=== PATIENT | female | born 1990 | race Caucasian/White ===

== ENCOUNTER 2016-09-24 16:21 | Emergency (ER) | payer SELFPAY ==
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
[2016-09-24 16:53] LABS: AMORPHOUS SEDIMENT,URINE TRACE /HPF; APPEARANCE,URINE CLOUDY; BILIRUBIN,URINE NEGATIVE (NEGATIVE); GLUCOSE, URINE NEGATIVE (NEGATIVE); KETONES,URINE NEGATIVE (NEGATIVE); LEUKOCYTE ESTERASE,URINE NEGATIVE (NEGATIVE); NITRITE,URINE NEGATIVE (NEGATIVE); PROTEIN,URINE NEGATIVE (NEGATIVE); URINE SPECIFIC GRAVITY 1.017; UROBILINOGEN,URINE NEGATIVE mg/dL (<2.0)
[2016-09-24 16:59] LABS: URINE BARBITURATES SCREEN NEGATIVE; URINE METHADONE SCREEN NEGATIVE; URINE OPIATES LOW NEGATIVE; URINE PHENCYCLIDINE SCREEN NEGATIVE
[2016-09-24 17:06] LABS: ABSOLUTE LYMPHOCYTES (AUTO) 1.3 10^3/uL (0.5-4.7); ABSOLUTE MONOCYTES (AUTO) 0.4 10^3/uL (0.1-1.4); ABSOLUTE NEUT (AUTO) 5.7 10^3/uL (1.7-8.2); BASOPHILS % (AUTO) 0.6 % (0-2); EOSINOPHILS % (AUTO) 0.3 % (0-6); HEMATOCRIT 42.9 % (36.0-47.0); HGB HCT DIFFERENCE 2.1; LYMPHOCYTES % (AUTO) 17.2 % (13-45); MEAN CORPUSCULAR HEMOGLOBIN 31.2 pg (27.0-33.4); MEAN CORPUSCULAR HGB CONC 34.9 g/dL (32.0-36.0); MEAN CORPUSCULAR VOLUME 90 fl (80-97); RED BLOOD COUNT 4.79 10^6/uL (3.72-5.28); RED CELL DISTRIBUTION WIDTH 13.1 % (11.5-14.0); SEGMENTED NEUTROPHILS % (AUTO) 76.9 % (42-78); WHITE BLOOD COUNT 7.4 10^3/uL (4.0-10.5)
[2016-09-24 17:30] LABS: ALANINE AMINOTRANSFERASE 30 U/L (9-52); ALBUMIN 4.5 g/dL (3.5-5.0); ALKALINE PHOSPHATASE 45 U/L (38-126); ANION GAP 10 (5-19); ASPARTATE AMINO TRANSFERASE 28 U/L (14-36); BILIRUBIN,DIRECT 0.3 mg/dL (0.0-0.4); BILIRUBIN,TOTAL 0.9 mg/dL (0.2-1.3); BLOOD UREA NITROGEN 13 mg/dL (7-20); CALCIUM 9.6 mg/dL (8.4-10.2); CARBON DIOXIDE 24 mmol/L (22-30); CHLORIDE 107 mmol/L (98-107); CREATININE RESULT 0.68 mg/dL (0.52-1.25); GLUCOSE 98 mg/dL (75-110); POTASSIUM 4.1 mmol/L (3.6-5.0); SODIUM 140.9 mmol/L (137-145); TOTAL PROTEIN 7.3 g/dL (6.3-8.2)
[2016-09-24 17:31] LABS: ALCOHOL < 10 mg/dL (NONE DETECTED)
--- NOTE | 2016-09-24 19:07 | EKG REPORT ---
SEVERITY:- NORMAL ECG - SINUS RHYTHM BORDERLINE [place] 120 MS., ACCEL. AV CONDUCTION. : Confirmed by: Alfonso Caro MD 24-Sep-2016 19:06:26
[2016-09-25] MEDS ORDERED: BUSPIRONE HCL 10 MG TABLET PO SCH (10:15)
--- NOTE | 2016-09-25 10:56 | ER Document Report ---
Doctor's Note Notes: 09/25/16 10:55 Rounds: Chart reviewed and patient interviewed. Patient was being evaluated for suicidal thoughts. However, she does not express any such thoughts this morning. Sounds rather positive when she speaks about her 2-year-old daughter who is at home. Vital signs all been normal. Lab studies are negative except for being positive for marijuana. Patient has an appointment to be seen at [facility] on the eighth. Patient appears to be medically stable for transfer or discharge. Carlee Shelton MD
[2016-09-25] MEDS ORDERED: DIVALPROEX SODIUM 250 MG TAB.SR.24H PO SCH (11:00)
[2016-09-25 13:50] VITALS: BP 125/79
== END 2016-09-25 13:40 | disposition home or self-care (01) ==
LOC: ER 16:21
DX: F31.9 Bipolar disorder, unspecified (principal); R45.851 Suicidal ideations; Z63.6 Dependent relative needing care at home; F17.200 Nicotine dependence, unspecified, uncomplicated
CPT/HCPCS: 36415; 80053; 80307; 81001; 84703; 85025; 93005; 93010; 99284

== ENCOUNTER 2018-02-23 05:29 | Emergency (ER) | payer OTHER ==
--- NOTE | 2018-02-23 06:27 | ER Document Report ---
ED General - General Chief Complaint: Ear Pain Stated Complaint: EAR PAIN Time Seen by Provider: 02/23/18 06:09 Notes: Patient is a 27-year-old female that presents to the emergency department for chief complaint of ear pain. Patient is currently 6 weeks gravid, she states she started complaining of ear pain last night, to the point that it got severe, currently rates the pain as a 10 out of 10, in her right ear. She states she feels fluid and popping behind it as well. She is had congestion and runny nose over the past week, and then developed this last night. She denies noting any fevers, chills, night sweats, cough, sore throat or difficulty breathing. Denies any abdominal pain or vaginal bleeding. Past Medical History: Denies chronic medical conditions Past Surgical History: Social History: Denies tobacco, alcohol or drug use. Family History: Reviewed and noncontributory for presenting illness Allergies: Reviewed, see documented allergy list. REVIEW OF SYSTEMS: Other than noted above, the 12 point review of systems was reviewed with the patient and were negative, all pertinent findings are included in the HPI. PHYSICAL EXAMINATION: Vital signs reviewed, nursing noted reviewed. GENERAL: Patient does appear uncomfortable and in pain HEAD: Atraumatic, normocephalic. EYES: Eyes appear normal, sclera anicteric, conjunctiva are normal. ENT: Moist mucous membranes. Bilateral TMs are visualized, although patient did have moderate amount of cerumen, but was able to visualize the TM, on the right it did appear erythematous and bulging, the left TM was unremarkable. NECK: Normal range of motion, supple without lymphadenopathy LUNGS: Breath sounds clear to auscultation bilaterally and equal. No wheezes rales or rhonchi. HEART: Regular rate and rhythm without murmurs EXTREMITIES: Nontender, good range of motion, no pitting or edema. NEUROLOGICAL: No focal neurological deficits. Moves all extremities spontaneously Motor and sensory grossly intact on exam. PSYCH: Normal mood, normal affect. SKIN: Warm, Dry, normal turgor, no rashes or lesions noted on exposed skin TRAVEL OUTSIDE OF THE [place] IN LAST 30 DAYS: No - Related Data Allergies/Adverse Reactions: No Known Allergies Allergy (Verified 07/02/14 15:42) Past Medical History - Social History Smoking Status: Former Smoker Chew tobacco use (# tins/day): No Frequency of alcohol use: None Drug Abuse: None Family History: Reviewed & Not Pertinent Patient has suicidal ideation: No Patient has homicidal ideation: No Renal/ Medical History: Denies: Hx Peritoneal Dialysis Psychiatric Medical History: Reports: Hx Depression Past Surgical History: Reports: Hx Section - Immunizations Hx Diphtheria, Pertussis, Tetanus Vaccination: Yes Physical Exam - Vital signs Vitals: Temp Pulse Resp BP Pulse Ox 97.7 F 92 20 119/74 99 02/23/18 05:35 02/23/18 05:35 02/23/18 05:35 02/23/18 05:35 02/23/18 05:35 Course - Re-evaluation Re-evalutation: Patient seen and examined, vital signs reviewed, patient appear to be uncomfortable, did appear to have a right otitis media, will discharge her home on a prescription for amoxicillin, for 10 days, also she was given in the ED 5 drops of tetracaine into the right ear canal to help augment some of her pain, and advised Tylenol 1000 mg every 8 hours to help with her pain as well. Patient was agreeable to this plan of care, she is advised to follow-up with her primary care physician. - Vital Signs Vital signs: Temp Pulse Resp BP Pulse Ox 98.9 F 89 18 122/77 97 02/23/18 06:51 02/23/18 06:51 02/23/18 06:51 02/23/18 06:51 02/23/18 06:51 Discharge - Discharge Clinical Impression: Acute otitis media Qualifiers: Otitis media type: unspecified Qualified Code(s): H66.90 - Otitis media, unspecified, unspecified ear Condition: Stable Disposition: HOME, SELF-CARE Instructions: Otitis Media ([facility]) Additional Instructions: Please follow-up with your PCP. Prescriptions: RX: Acetaminophen [Tactinal] 1,000 mg PO Q8 PRN #90 tablet PRN Reason: ear pain RX: Amoxicillin Trihydrate [Amoxil 875 mg Tablet] 1 tab PO BID #20 tablet Referrals: [facility] [Provider Group] - Follow up in 3-5 days (or your primary care. )
[2018-02-23] MEDS ORDERED: TETRACAINE HCL 0.5% OPH SOLN 4 ML TOP ONE (06:39)
[2018-02-23] MEDS ORDERED: AMOXICILLIN TRIHYDRATE 500 MG CAPSULE PO ONE (06:41)
[2018-02-23 06:52] VITALS: BP 122/77
== END 2018-02-23 07:00 | disposition home or self-care (01) ==
LOC: ER 05:29
DX: H66.91 Otitis media, unspecified, right ear (principal)
CPT/HCPCS: 99283; J3490

== ENCOUNTER → 2018-06-08 | Outpatient (CLI) | payer OTHER, MEDICAID ==
--- NOTE | 2018-06-08 16:16 | RADIOLOGY REPORT (SQ) ---
EXAM DESCRIPTION: VENOUS UNILATERAL LOWER COMPLETED DATE/TIME: 06/08/2018 3:53 pm REASON FOR STUDY: LLE SWELLING I80.00 PHLEBITIS AND THROMBOPHLEBITIS OF SUPERFICIAL VESSELS OF UNSP LOW COMPARISON: None. TECHNIQUE: Dynamic and static cannon scale and color images acquired of the left leg venous system. Se lected spectral images acquired with additional compression and augmentation maneuvers. The contralat eral common femoral vein and saphenofemoral junction were also imaged. Images stored on PACS. LIMITATIONS: None. FINDINGS: COMMON FEMORAL: Normal phasicity, compression and augmentation. No visualized echogenic ma terial on cannon scale. No defects on color images. FEMORAL: Normal compression and augmentation. No visualized echogenic material on cannon scale. No defe cts on color images. POPLITEAL: Normal compression, augmentation. No visualized echogenic material on cannon scale. No defec ts on color images. CALF VESSELS: Normal compression, augmentation. No visualized echogenic material on cannon scale. No de fects on color images. GSV and SSV: Normal compression, augmentation. No visualized echogenic material on cannon scale. No def ects on color images. ANY DEEP VENOUS INSUFFICIENCY: Not evaluated. ANY EVIDENCE OF POPLITEAL CYST: No. OTHER: No other significant finding. CONTRALATERAL COMMON FEMORAL VEIN AND SAPHENOFEMORAL JUNCTION: Normal phasicity, compression and augmentation. No visualized echogenic material on cannon scale. No de fects on color images. IMPRESSION: NO EVIDENCE DVT OR SVT IN THE LEFT LEG. TECHNICAL DOCUMENTATION: JOB ID: [id number] [employer]- All Rights Reserved Reading location - IP/workstation name: [email or web address]
== END ==
LOC: SP 14:56
PROVIDERS: ATTEND Midwife
DX: I80.00 Phlebitis and thrombophlebitis of superficial vessels of unspecified lower extremity (principal)
CPT/HCPCS: 93971

== ENCOUNTER → 2018-07-19 | Outpatient (CLI) | payer MEDICAID, OTHER ==
--- NOTE | 2018-07-19 16:27 | RADIOLOGY REPORT (SQ) ---
EXAM DESCRIPTION: VENOUS UNILATERAL LOWER COMPLETED DATE/TIME: 07/19/2018 3:35 pm REASON FOR STUDY: LLE PAIN I83.812 VARICOSE VEINS OF LEFT LOWER EXTREMITY WITH PAIN COMPARISON: None. TECHNIQUE: Dynamic and static cannon scale and color images acquired of the left leg venous system. Se lected spectral images acquired with additional compression and augmentation maneuvers. The contralat eral common femoral vein and saphenofemoral junction were also imaged. Images stored on PACS. LIMITATIONS: None. FINDINGS: COMMON FEMORAL: Normal phasicity, compression and augmentation. No visualized echogenic ma terial on cannon scale. No defects on color images. FEMORAL: Normal compression and augmentation. No visualized echogenic material on cannon scale. No defe cts on color images. POPLITEAL: Normal compression, augmentation. No visualized echogenic material on cannon scale. No defec ts on color images. CALF VESSELS: Normal compression, augmentation. No visualized echogenic material on cannon scale. No de fects on color images. GSV and SSV: Normal compression, augmentation. No visualized echogenic material on cannon scale. No def ects on color images. ANY DEEP VENOUS INSUFFICIENCY: Not evaluated. ANY EVIDENCE OF POPLITEAL CYST: No. OTHER: No other significant finding. CONTRALATERAL COMMON FEMORAL VEIN AND SAPHENOFEMORAL JUNCTION: Normal phasicity, compression and augmentation. No visualized echogenic material on cannon scale. No de fects on color images. IMPRESSION: No evidence of DVT or SVT in the left leg. TECHNICAL DOCUMENTATION: JOB ID: [id number] [employer]- All Rights Reserved Reading location - IP/workstation name: [email or web address]
== END ==
LOC: SP 15:02
PROVIDERS: ATTEND Obstetrics & Gynecology
DX: I83.812 Varicose veins of left lower extremity with pain (principal)
CPT/HCPCS: 93971

== ENCOUNTER 2018-10-10 10:26 | Inpatient (IN) | payer MEDICAID ==
[2018-10-10 11:48] LABS: ABSOLUTE BASOPHILS # (AUTO) 0.1 10^3/uL (0.0-0.2); ABSOLUTE EOSINOPHILS # (AUTO) 0.1 10^3/uL (0.0-0.6); ABSOLUTE LYMPHOCYTES (AUTO) 1.5 10^3/uL (0.5-4.7); ABSOLUTE MONOCYTES (AUTO) 0.5 10^3/uL (0.1-1.4); ABSOLUTE NEUT (AUTO) 6.2 10^3/uL (1.7-8.2); BASOPHILS % (AUTO) 0.6 % (0-2); EOSINOPHILS % (AUTO) 1.4 % (0-6); HEMATOCRIT 35.7 % (36.0-47.0); HEMOGLOBIN 12.6 g/dL (12.0-15.5); LYMPHOCYTES % (AUTO) 18.2 % (13-45); MEAN CORPUSCULAR HEMOGLOBIN 32.3 pg (27.0-33.4); MEAN CORPUSCULAR HGB CONC 35.3 g/dL (32.0-36.0); MEAN CORPUSCULAR VOLUME 92 fl (80-97); MONOCYTES % (AUTO) 5.9 % (3-13); PLATELET COUNT 178 10^3/uL (150-450); RED CELL DISTRIBUTION WIDTH 13.3 % (11.5-14.0); SEGMENTED NEUTROPHILS % (AUTO) 73.9 % (42-78); TOTAL CELLS COUNTED % (AUTO) 100 %; WHITE BLOOD COUNT 8.4 10^3/uL (4.0-10.5)
[2018-10-10 11:59] LABS: APPEARANCE,URINE SLIGHTLY-CLOUDY; BILIRUBIN,URINE NEGATIVE (NEGATIVE); COLOR,URINE YELLOW; GLUCOSE, URINE NEGATIVE (NEGATIVE); KETONES,URINE NEGATIVE (NEGATIVE); LEUKOCYTE ESTERASE,URINE MODERATE (NEGATIVE); NITRITE,URINE NEGATIVE (NEGATIVE); PROTEIN,URINE NEGATIVE (NEGATIVE); URINE SPECIFIC GRAVITY 1.009; UROBILINOGEN,URINE NEGATIVE mg/dL (<2.0)
[2018-10-10 12:15] LABS: URINE AMPHETAMINES SCREEN NEGATIVE; URINE BARBITURATES SCREEN NEGATIVE; URINE BENZODIAZEPINES SCREEN NEGATIVE; URINE COCAINE SCREEN NEGATIVE; URINE MARIJUANA (THC) SCREEN NEGATIVE; URINE METHADONE SCREEN NEGATIVE; URINE PHENCYCLIDINE SCREEN NEGATIVE
[2018-10-10 13:22] LABS: CHLAM PCR NOT DETECTED (NOT DETECT)
[2018-10-11] MEDS ORDERED: RINGERS SOLUTION,LACTATED 1,000 ML IV PRN ×2 (05:00→12:31)
[2018-10-11] MEDS ORDERED: CEFAZOLIN SODIUM 2 GM in DEXTROSE 5%-WATER 100 ML IV PRN (05:00)
[2018-10-11] MEDS: LACTATED RINGERS 1000 ML IV PRN ×2 (06:24→18:08)
[2018-10-11] MEDS ORDERED: OXYTOCIN 10 UNIT/ML VIAL ONE (07:28)
[2018-10-11] MEDS ORDERED: KETOROLAC TROMETHAMINE INJ/PF 30 MG/1 ML SDV ONE (07:28)
[2018-10-11] MEDS ORDERED: MIDAZOLAM 2 MG/2 ML INJ ONE (07:28)
[2018-10-11] MEDS ORDERED: FENTANYL CITRATE INJ/PF 100 MCG/2 ML AMPUL ONE (07:28)
[2018-10-11] MEDS ORDERED: EPHEDRINE SULFATE INJ 50 MG/1 ML AMPULE ONE (07:28)
[2018-10-11] MEDS ORDERED: OXYTOCIN/NORMAL SALINE 20 UNIT/1,000 ML RTUINJ ONE (07:28)
[2018-10-11] MEDS ORDERED: ACETAMINOPHEN 1,000 MG/100 ML RTUPB IV ONE (07:29)
[2018-10-11] MEDS ORDERED: ONDANSETRON HCL INJ/PF 4 MG/2 ML SDV ONE (07:29)
[2018-10-11] MEDS ORDERED: PHENYLEPHRINE HCL INJ/PF 10 MG/1 ML SDV ONE (07:31)
[2018-10-11] MEDS ORDERED: MEPERIDINE HCL/PF INJ 25 MG/1 ML DISP.SYRIN IV PRN (09:12)
[2018-10-11] MEDS ORDERED: OXYCODONE-ACETAMINOPHEN 5-325 MG TABLET PO PRN ×3 (09:12→12:31)
[2018-10-11] MEDS ORDERED: FENTANYL CITRATE INJ/PF 100 MCG/2 ML AMPUL IV PRN ×3 (09:12)
[2018-10-11] MEDS ORDERED: DIPHENHYDRAMINE HCL 50 MG/ML VIAL IV PRN (09:12)
[2018-10-11] MEDS ORDERED: PROMETHAZINE HCL INJ 25 MG/1 ML VIAL IV PRN ×3 (09:12→12:31)
[2018-10-11] MEDS ORDERED: ONDANSETRON HCL INJ/PF 4 MG/2 ML SDV IV PRN (09:12)
[2018-10-11] MEDS ORDERED: NALBUPHINE HCL INJ 10 MG/1 ML AMPULE ONE (09:53)
[2018-10-11] MEDS ORDERED: DIPH/PERTUSS(ACELL)/TETANUS VAC/PF 0.5 ML SYR (>=10YO) IM PRN (12:31)
[2018-10-11] MEDS ORDERED: ACETAMINOPHEN 1,000 MG/100 ML RTUPB IV PRN (12:31)
[2018-10-11] MEDS ORDERED: SIMETHICONE 80 MG TAB.CHEW PO PRN (12:31)
[2018-10-11] MEDS ORDERED: MEASLES,MUMPS&RUBELLA VACC/PF 0.5 ML VIAL SUBCUT PRN (12:31)
[2018-10-11] MEDS ORDERED: OXYTOCIN/NORMAL SALINE 20 UNIT/1,000 ML RTUINJ IV PRN (12:31)
[2018-10-11] MEDS ORDERED: HYDROMORPHONE HCL INJ/PF 2 MG/ML AMPULE IV PRN (12:31)
[2018-10-11] MEDS ORDERED: ACETAMINOPHEN 325 MG TABLET PO PRN (12:31)
[2018-10-11] MEDS: KETOROLAC TROMETHAMINE INJ/PF 30 MG/1 ML SDV IV SCH ×2 (15:47→22:10)
[2018-10-11] MEDS: DOCUSATE SODIUM 100 MG CAPSULE PO SCH (18:15)
--- NOTE | 2018-10-11 19:16 | Brief Operative Note ---
BRIEF OPERATIVE REPORT DATE OF SURGERY: 10/11/18 TIME OF SURGERY: 09:00 PREOPERATIVE DIAGNOSIS: , 39+1ega, History of section, Declines TOLAC, Circuvallate placenta POSTOPERATIVE DIAGNOSIS: HUANG - delivered SURGEON: TOBY RUIZ FINDINGS: Normal appearing bilateral tubes/ovaries, Arcuate appearing uterus. VMI delivered at 0906. Weight 9#2oz, Apgars 9/10. IVF 2000ml, UOP 100ml COMPLICATIONS: None ESTIMATED BLOOD LOSS: 560ml TISSUE REMOVED OR ALTERED: placenta and cord not sent to pathology TECHNICAL PROCEDURE: Repeat Section
--- NOTE | 2018-10-11 19:17 | PDOC DELIVERY SUMMARY ---
Delivery Summary - Maternal Hx : II Hx Para: I Hx # Term Pregnancies: 1 Hx # Pregnancies: 0 Hx Total # of Abortions (Sponateous & Elective): 0 Number of Living Children: 1 YAS: 10/17/18 Gestational Age: 39+2 Risk Factors: Previous Ruptured Membranes: AROM Time of Rupture: 09:05 Fluids: Clear - Delivery Labor: Not In Labor Presentation: Vertex Uterine Contraction Monitoring: External Support Person Present: Yes Location: OR : Scheduled, Repeat Placenta: Within Normal Limits Placenta Description: circumvallate but otherwise normal appearing Number of Vessels (Cord): 3 Nuchal Cord: No Delivery of Placenta Date: 10/11/18 Delivery of Placenta Time: 09:06 Estimated Blood Loss: 560 Delivery Quantitative Blood Loss (QBL): 560 Delivery QBL Comment: 560ml - Medications Type of Anesthesia:: Spinal - Assess and Care Baby 1 Male Delivery of Date: 10/11/18 Delivery of Infant Time: 09:06 at 1 minute: 9 at 5 minutes: 10 Preprinted Number On Band: [id number] Infant Skin to Skin: No Mode of Transport: [facility] [place] Delivery Weight: 4,140 Infant Delivery Length: 21 in - Delivery Personnel Senior Compliance Analyst: BRIAN LIZARRAGA RN: AYAN CASE MD: TOBY RUIZ
--- NOTE | 2018-10-11 19:33 | Operative Report ---
Operative Report DATE OF SURGERY: 10/11/18 PREOPERATIVE DIAGNOSIS: , 39+1ega, History of section, Declines TOLAC, Circumvallate placenta POSTOPERATIVE DIAGNOSIS: HUANG - delivered, arcuate uterus OPERATION: Repeat section, Scar revision SURGEON: TOBY RUIZ ANESTHESIA: Spinal TISSUE REMOVED OR ALTERED: placenta and cord not sent to pathology COMPLICATIONS: None ESTIMATED BLOOD LOSS: 560ml INTRAOPERATIVE FINDINGS: normal bilateral tubes/ovaries, arcuate appearing uterus. VMI delivered at 0906, weight 9#2oz, Apgars 9/10. PROCEDURE: Anesthesia provider: [Ratna FONTAINE, Abdifatah Arrieta CRNA] Urine output: [100ml] IV fluids: [2000ml] Indications: [28yo with history of Primary section for cephalopelvic disproportion with 8#11oz baby. She was counseled regarding TOLAC and declines TOLAC and desires repeat Section. History of depression and planner internship placed. She was counseled regarding the risks, benefits, alternatives and desires repeat section.] Procedure: The patient was taken to the operating room where spinal anesthesia was obtained and found to be adequate. She was then prepped and draped in the normal sterile fashion and placed in the dorsal supine position with a leftward tilt. The prior Pfannenstiel skin incision was excised and then incision was then carried through to the underlying layers of the fascia with the scalpel. The fascia was incised in the midline and the incision extended laterally with the Lawson scissors. The superior aspect of the fascial incision was then grasped with Erin clamps elevated and the underlying rectus muscles dissected off [bluntly]. Attention was then turned to the inferior aspect of the fascial incision which in a similar fashion was grasped, tented up with Erin clamps, and the rectus muscles dissected off [bluntly]. The rectus muscles were then in the midline and the peritoneum at the amount identified and entered [bluntly]. The peritoneal incision was then extended superiorly and inferiorly with good visualization of the bladder. The bladder blade was inserted and the vesicouterine peritoneum identified grasped with Argentine pickups and entered sharply with the Metzenbaum scissors. This incision was then extended laterally with the Metzenbaum scissors and a bladder flap created digitally. The bladder blade was then reinserted and the lower uterine segment incised in a transverse fashion with the scalpel. The uterine incision was then extended bluntly. The bladder blade was removed and the 's head was delivered from cephalic presentation atraumatically. The nose and mouth were suctioned and the cord doubly clamped and cut. And the was handed off to waiting pediatricians. The placenta was then delivered spontaneously and the uterus exteriorized and cleared of all clots and debris. The uterine incision was then repaired with 1- 0 Vicryl in a running locked fashion. A second layer of the same suture was used to obtain hemostasis via imbrication of the initial layer. The bladder flap was then repaired with 3-0 chromic in a running fashion. The uterus was returned to the patient's abdomen and Interceed was placed overlying the uterine incision to prevent adhesions. The gutters were cleared of all clots and debris. All operative sites were noted to be hemostatic. The fascia was reapproximated with 0 Vicryl in a running fashion from each lateral edge to the midline. The skin was closed with 3-0 Monocryl in a running subcuticular fashion with overlying Dermabond for additional dressing as well as wound closure. The patient tolerated the procedure well. Sponge lap needle and instrument counts are correct times 2. 2 g of Ancef were given prior to skin incision. The patient was taken to the recovery area awake and in stable condition.
[2018-10-11] MEDS: OXYCODONE-ACETAMINOPHEN 5-325 MG TABLET PO PRN (20:03)
[2018-10-12] MEDS: OXYCODONE-ACETAMINOPHEN 5-325 MG TABLET PO PRN ×4 (01:50→20:35)
[2018-10-12] MEDS: IBUPROFEN 800 MG TABLET PO SCH ×3 (05:26→19:51)
[2018-10-12 07:09] LABS: HEMATOCRIT 27.1 % (36.0-47.0); MEAN CORPUSCULAR HEMOGLOBIN 32.1 pg (27.0-33.4); MEAN CORPUSCULAR VOLUME 92 fl (80-97); PLATELET COUNT 137 10^3/uL (150-450); RED BLOOD COUNT 2.95 10^6/uL (3.72-5.28); RED CELL DISTRIBUTION WIDTH 13.3 % (11.5-14.0); WHITE BLOOD COUNT 8.5 10^3/uL (4.0-10.5)
[2018-10-12 07:16] LABS: HEMOGLOBIN 9.5 g/dL (12.0-15.5)
[2018-10-12] MEDS: DOCUSATE SODIUM 100 MG CAPSULE PO SCH ×2 (09:46→19:52)
[2018-10-12] MEDS: PRENATAL VITAMIN W DHA CAPSULE PO SCH (09:46)
--- NOTE | 2018-10-12 10:33 | PDOC PROGRESS REPORT ---
Subjective-OB Progress Note for:: 10/12/18 - POD #1, s/p Rpt , doing well , no complaints, AB+, Rubella Non Immune, Physical Exam (OB) Vital Signs: Temp Pulse Resp BP Pulse Ox 97.3 F 76 16 126/63 H 98 10/12/18 07:34 10/12/18 07:34 10/12/18 07:34 10/12/18 07:34 10/12/18 07:34 Intake & Output 10/11/18 10/12/18 10/13/18 06:59 06:59 06:59 Intake Total 1100 Output Total 4800 Balance -3700 Weight 73.482 kg - General General Appearance: Appears well, Alert In distress: None - PIH/Pre-Eclampsia DTR's: 2 + Clonus: Negative Headache: Absent Epigastric Pain: No Visual Changes: No - Dressing Removed: No Incision: Well Approximated Closure Type: Steri-Strips - Lochia Lochia Amount: Scant < 10 ml Lochia Color: Rubra/Red - Abdomen Description: Soft Hernia Present: No Fundal Description: Firm Fundal Height: u/u - u/2 - Respiratory Respiratory Status: No respiratory distress Breath sounds: Clear - Cardiovascular Rhythm: Regular Heart Sounds: Normal auscultation - Abdominal Inspection: Normal Distension: No distension Tenderness: Nontender Abdominal Notes: +bowel sounds - Genitourinary Genitourinary Note: voiding - Extremities Upper extremity: Normal inspection Lower extremities: Normal inspection - Neurological Cognition: Normal Orientation: AAOx4 - Psychological Associated symptoms: Normal affect, Normal mood - Skin Skin Temperature: Warm Skin Moisture: Dry Objective-Diagnostic Laboratory: 10/12/18 06:44 10/12/18 06:44 WBC 8.5 RBC 2.95 L Hgb 9.5 L D Hct 27.1 L MCV 92 MCH 32.1 MCHC 35.0 RDW 13.3 Plt Count 137 L Assessment and Plan(PN) - Assessment and Plan (1) Anemia, Is this a current diagnosis for this admission?: Yes (2) History of delivery Is this a current diagnosis for this admission?: Yes (3) S/P repeat low transverse Is this a current diagnosis for this admission?: Yes (4) Depressed bipolar disorder Is this a current diagnosis for this admission?: Yes (5) History of suicide attempt Is this a current diagnosis for this admission?: No - Time Spent with Patient Time with patient: Less than 15 minutes Medications reviewed and adjusted accordingly: Yes - Disposition Anticipated Discharge: Home Within: within 48 hours
[2018-10-12] MEDS: FERROUS SULFATE 325 MG TABLET PO SCH (14:22)
[2018-10-13] MEDS: IBUPROFEN 800 MG TABLET PO SCH ×3 (04:39→12:49)
[2018-10-13] MEDS: OXYCODONE-ACETAMINOPHEN 5-325 MG TABLET PO PRN ×2 (07:17→12:47)
[2018-10-13 08:30] VITALS: BP 121/70
[2018-10-13] MEDS: DOCUSATE SODIUM 100 MG CAPSULE PO SCH (10:53)
[2018-10-13] MEDS: FERROUS SULFATE 325 MG TABLET PO SCH (10:53)
[2018-10-13] MEDS: PRENATAL VITAMIN W DHA CAPSULE PO SCH (10:53)
--- NOTE | 2018-10-13 12:23 | PDOC DISCHARGE SUMMARY ---
Final Diagnosis Discharge Date: 10/13/18 - Final Diagnosis (1) Anemia, Is this a current diagnosis for this admission?: Yes (2) History of delivery Is this a current diagnosis for this admission?: Yes (3) S/P repeat low transverse Is this a current diagnosis for this admission?: Yes (4) Depressed bipolar disorder Is this a current diagnosis for this admission?: Yes (5) History of suicide attempt Is this a current diagnosis for this admission?: Yes Discharge Data - Discharge Medication Home Medications: Pnv with Ca,No.72/Iron/FA [ Plus Tablet] 1 tab PO DAILY 07/02/14 Reason(s) for Admission: Ceasarean Section-Repeat Procedures: None Intrapartum Procedure(s): : Low Cervical, Transverse - Diagnosis Test Laboratory: Temp Pulse Resp BP Pulse Ox 97.9 F 95 18 121/70 99 10/13/18 08:00 10/13/18 08:00 10/13/18 08:00 10/13/18 08:00 10/13/18 08:00 10/10/18 10/10/18 10/12/18 09:53 10:43 06:44 RBC 3.90 2.95 L Hgb 12.6 9.5 L D Hct 35.7 L 27.1 L Urine Opiates Screen NEGATIVE - Discharge information/Instructions Discharge Activity: Balance Activity w/Rest, No Lifting Over 10 Pounds, No Lifting/Push/Pulling, Pelvic Rest Discharge Diet: Regular Disposition: HOME, SELF-CARE Follow [facility] in: 5, Days
== END 2018-10-13 17:50 | disposition home or self-care (01) | DRG 788 ==
LOC: 2S 10-11 05:38
PROVIDERS: ADMIT Student in an Organized Health Care Education/Training Program; ATTEND Student in an Organized Health Care Education/Training Program
PROC: 10D00Z1 Extraction of Products of Conception, Low, Open Approach (ICD-10-PCS; principal; 2018-10-11 07:30)
PROC: 3E0234Z Introduction of Serum, Toxoid and Vaccine into Muscle, Percutaneous Approach (ICD-10-PCS; 2018-10-13)
DX: O34.211 Maternal care for low transverse scar from previous cesarean delivery (principal); N85.8 Other specified noninflammatory disorders of uterus; O34.03 Maternal care for unspecified congenital malformation of uterus, third trimester; Q51.810 Arcuate uterus; O43.113 Circumvallate placenta, third trimester; Z3A.39 39 weeks gestation of pregnancy; Z37.0 Single live birth; Z23 Encounter for immunization
CPT/HCPCS: 1961; 36415; 59025; 80307; 81001; 85025; 85027; 86850; 86900; 86901; 87491; 87591; 90707; J0131; J0690; J1170; J1885; J2250; J2300; J2370; J2405; J2590; J3010; J3490; J7060; J7120

== ENCOUNTER 2019-07-03 13:02 | Emergency (ER) | payer MEDICAID ==
[2019-07-03] MEDS ORDERED: NORMAL SALINE 1000 ML 1,000 ML IV ONE (13:21)
[2019-07-03] MEDS ORDERED: ONDANSETRON HCL INJ/PF 4 MG/2 ML SDV IV ONE ×2 (13:21→14:17)
[2019-07-03 13:41] LABS: ABSOLUTE BASOPHILS # (AUTO) 0.1 10^3/uL (0.0-0.2); ABSOLUTE LYMPHOCYTES (AUTO) 1.3 10^3/uL (0.5-4.7); ABSOLUTE MONOCYTES (AUTO) 0.4 10^3/uL (0.1-1.4); ABSOLUTE NEUT (AUTO) 9.4 10^3/uL (1.7-8.2); BASOPHILS % (AUTO) 0.8 % (0-2); EOSINOPHILS % (AUTO) 0.4 % (0-6); HEMATOCRIT 45.4 % (36.0-47.0); HEMOGLOBIN 16.1 g/dL (12.0-15.5); LYMPHOCYTES % (AUTO) 11.9 % (13-45); MEAN CORPUSCULAR HEMOGLOBIN 31.8 pg (27.0-33.4); MEAN CORPUSCULAR HGB CONC 35.5 g/dL (32.0-36.0); MEAN CORPUSCULAR VOLUME 90 fl (80-97); MONOCYTES % (AUTO) 3.3 % (3-13); PLATELET COUNT 260 10^3/uL (150-450); RED BLOOD COUNT 5.07 10^6/uL (3.72-5.28); RED CELL DISTRIBUTION WIDTH 13.5 % (11.5-14.0); SEGMENTED NEUTROPHILS % (AUTO) 83.6 % (42-78); TOTAL CELLS COUNTED % (AUTO) 100 %; WHITE BLOOD COUNT 11.3 10^3/uL (4.0-10.5)
--- NOTE | 2019-07-03 13:55 | ER Document Report ---
ED GI/ - General TRAVEL OUTSIDE OF THE [place] IN LAST 30 DAYS: No <VALERIA LAO - Last Filed: 07/03/19 16:40> <[email or web address] - Last Filed: 07/03/19 17:10> - General Chief Complaint: Vomiting Stated Complaint: COUGH Time Seen by Provider: 07/03/19 13:08 Primary Care Provider: CHENG UMJICA MD [Primary Care Provider] - Follow up as needed Notes: CHIEF COMPLAINT: Vomiting for 3 to 4 days HPI: 29-year-old female presenting for vomiting for 3 to 4 days. Patient states that she normally does have moderate pelvic discomfort and some nausea vomiting around the time of her menses each month but states that she is been having significant nausea vomiting over the last 3 to 4 days. Patient denies abdominal or pelvic pain states she has some soreness in the abdomen which she believes is likely from vomiting. Denies chest pain shortness of breath cough or back pain. ROS: See HPI - all other systems were reviewed and are otherwise negative Constitutional: no fever Eyes: no drainage, no blurred vision ENT: no runny nose, no sore throat Cardiovascular: no chest pain Resp: no SOB, no cough GI: + vomiting, no diarrhea, positive abdominal soreness : no dysuria Integumentary: no rash Allergy: no hives Musculoskeletal: no extremity pain or swelling Neurological: no numbness/tingling, no weakness MEDICATIONS: I agree with the patient medications as charted by the RN. ALLERGIES: I agree with the allergies as charted by the RN. PAST MEDICAL HISTORY/PAST SURGICAL HISTORY: Reviewed and agree as charted by RN. SOCIAL HISTORY: Reviewed and agree as charted by RN. FAMILY HISTORY: No significant familial comorbid conditions directly related to patient complaint EXAM: Reviewed vital signs as charted by RN. CONSTITUTIONAL: Alert and oriented and responds appropriately to questions. Well-appearing; well-nourished HEAD: Normocephalic; atraumatic EYES: PERRL; Conjunctivae clear, sclerae non-icteric ENT: normal nose; no rhinorrhea; moist mucous membranes; pharynx without lesions noted, no uvula edema or deviation, no tonsillar hypertrophy, phonation normal NECK: Supple without meningismus; non-tender; no cervical lymphadenopathy, no masses CARD: RRR; no murmurs, no clicks, no rubs, no gallops; symmetric distal pulses RESP: Normal chest excursion without splinting or tachypnea; breath sounds clear and equal bilaterally; no wheezes, no rhonchi, no rales, pulse oximetry 100% on room air not hypoxic ABD/GI: Normal bowel sounds; non-distended; soft, non-tender, no rebound, no guarding; no palpable organomegaly or masses. BACK: The back appears normal and is non-tender to palpation, there is no CVA tenderness EXT: Normal ROM in all joints; non-tender to palpation; no cyanosis, no effusions, no edema SKIN: Normal color for age and race; warm; dry; good turgor; no acute lesions noted NEURO: Moves all extremities equally; Motor and sensory function intact PSYCH: The patient's mood and manner are appropriate. Grooming and personal hygiene are appropriate. MDM: 29-year-old female presenting for cyclic type vomiting, dry heaving and retching in the room. No focal abdominal pain on exam. I suspect she likely has cyclic vomiting. Will obtain screening labs hydrate patient given nausea medication and will reassess. No indication for imaging at this time (VALERIA LAO) - Related Data Allergies/Adverse Reactions: No Known Allergies Allergy (Verified 07/03/19 13:30) Past Medical History - Social History Smoking Status: Current Every Day Smoker Drug Abuse: Marijuana Family History: Reviewed & Not Pertinent Patient has homicidal ideation: No - Past Medical History Cardiac Medical History: Denies: Hx Pulmonary Embolism, Hx Heart Murmur Pulmonary Medical History: Denies: Hx Asthma, Hx Sleep Apnea, Hx Tuberculosis Neurological Medical History: Denies: Hx Cerebrovascular Accident, Hx Seizures Endocrine Medical History: Denies: Hx Hyperthyroidism, Hx Hypothyroidism Renal/ Medical History: Denies: Hx Kidney Stones, Hx Ovarian Cysts, Hx Peritoneal Dialysis, Hx Pelvic Inflammatory Disease Malignancy Medical History: Denies: Hx Breast Cancer, Hx Cervical Cancer, Hx Ovarian Cancer GI Medical History: Reports: Hx Gastroesophageal Reflux Disease. Denies: Hx Hiatal Hernia, Hx Ulcer Musculoskeletal Medical History: Denies Hx Fibromyalgia Psychiatric Medical History: Reports: Hx Bipolar Disorder, Hx Depression Denies: Hx Post Traumatic Stress Disorder, Hx Schizophrenia Traumatic Medical History: Denies: Hx Fractures Infectious Medical History: Denies: Hx HIV Past Surgical History: Reports: Hx Section - Immunizations Hx Diphtheria, Pertussis, Tetanus Vaccination: Yes <VALERIA LAO - Last Filed: 07/03/19 16:40> Physical Exam - Vital signs Vitals: Temp Pulse Resp BP Pulse Ox 98.4 F 97 20 141/98 H 100 07/03/19 13:30 07/03/19 13:30 07/03/19 13:30 07/03/19 13:30 07/03/19 13:30 Course - Laboratory Result Diagrams: 07/03/19 13:30 07/03/19 13:30 <VALERIA LAO - Last Filed: 07/03/19 16:40> - Laboratory Result Diagrams: 07/03/19 13:30 07/03/19 13:30 <MAMI FERREIRA - Last Filed: 07/03/19 17:10> - Re-evaluation Re-evalutation: 07/03/19 14:17 Patient states that she feels much better, still with very slight nausea no abdominal pain on reexam. Awaiting urinalysis 07/03/19 15:58 Patient had been feeling better nurses attempted to give ice chips and patient began retching again. She is positive for THC. Likely cyclic vomiting syndrome. Will give Haldol, capsaicin cream and reassess 07/03/19 16:53 Report to Gail Ferreira NP. will follow oral challenge for discharge (VALERIA LAO) 07/03/19 17:10 Tolerating fluids. She has stated she is feeling much better and would like to go home now. Discharge has been typed with a prescription for Reglan. Patient will be discharged home. (MAMI FERREIRA) - Vital Signs Vital signs: Temp Pulse Resp BP Pulse Ox 99.4 F 97 20 141/98 H 100 07/03/19 13:30 07/03/19 13:30 07/03/19 13:30 07/03/19 13:30 07/03/19 13:30 - Laboratory Laboratory results interpreted by me: 07/03/19 07/03/19 07/03/19 13:30 13:30 14:45 WBC 11.3 H Hgb 16.1 H Lymph % (Auto) 11.9 L Absolute Neuts (auto) 9.4 H Seg Neutrophils % 83.6 H Chloride 109 H Carbon Dioxide 20 L Glucose 139 H Urine Glucose (UA) 50 H Urine Ketones 25 H Urine Blood LARGE H Discharge <VALERIA LAO - Last Filed: 07/03/19 16:40> <MAMI FERREIRA - Last Filed: 07/03/19 17:10> - Discharge Clinical Impression: Cyclic vomiting syndrome, Marijuana abuse Condition: Stable Disposition: HOME, SELF-CARE Additional Instructions: Stop using marijuana as this is likely causing some of the cyclic vomiting you are doing. Take the Reglan for continued nausea vomiting. Follow-up with gastroenterology for further evaluation and treatment call for appointment Prescriptions: Metoclopramide HCl [Reglan 10 mg Tablet] 10 mg PO QID PRN #40 tablet PRN Reason: Referrals: CHENG MUJICA MD [Primary Care Provider] - Follow up as needed
[2019-07-03 14:09] LABS: ALBUMIN 4.9 g/dL (3.5-5.0); ALKALINE PHOSPHATASE 64 U/L (38-126); ANION GAP 10 (5-19); ASPARTATE AMINO TRANSFERASE 30 U/L (14-36); BILIRUBIN,TOTAL 0.8 mg/dL (0.2-1.3); BLOOD UREA NITROGEN 15 mg/dL (7-20); CALCIUM 10.2 mg/dL (8.4-10.2); CARBON DIOXIDE 20 mmol/L (22-30); CHLORIDE 109 mmol/L (98-107); GLUCOSE 139 mg/dL (75-110); POTASSIUM 3.8 mmol/L (3.6-5.0)
[2019-07-03 15:30] LABS: ADD MANUAL MICROSCOPIC YES; APPEARANCE,URINE CLEAR; BILIRUBIN,URINE NEGATIVE (NEGATIVE); COLOR,URINE LIGHT YELLOW; GLUCOSE, URINE 50 mg/dL (NEGATIVE); KETONES,URINE 25 mg/dL (NEGATIVE); LEUKOCYTE ESTERASE,URINE NEGATIVE (NEGATIVE); NITRITE,URINE NEGATIVE (NEGATIVE); PROTEIN,URINE NEGATIVE (NEGATIVE); URINE SPECIFIC GRAVITY 1.018; UROBILINOGEN,URINE NEGATIVE mg/dL (<2.0)
[2019-07-03 15:31] LABS: RBC,URINE 0-1 /HPF; WBC,URINE 0-1 /HPF
[2019-07-03 15:36] LABS: URINE AMPHETAMINES SCREEN NEGATIVE; URINE BARBITURATES SCREEN NEGATIVE; URINE BENZODIAZEPINES SCREEN NEGATIVE; URINE COCAINE SCREEN NEGATIVE; URINE METHADONE SCREEN NEGATIVE; URINE PHENCYCLIDINE SCREEN NEGATIVE
[2019-07-03 15:37] LABS: URINE MARIJUANA (THC) SCREEN UNCONFIRMED POSITIVE
[2019-07-03] MEDS ORDERED: HALOPERIDOL LACTATE INJ 5 MG/1 ML VIAL IV ONE (15:57)
[2019-07-03] MEDS ORDERED: CAPSAICIN 0.025% CREAM 60 GM TP ONE (15:57)
[2019-07-03 17:18] VITALS: BP 123/80
== END 2019-07-03 17:19 | disposition home or self-care (01) ==
LOC: ER 13:02
DX: R11.15 Cyclical vomiting syndrome unrelated to migraine (principal); F12.10 Cannabis abuse, uncomplicated; R05 Cough; R11.2 Nausea with vomiting, unspecified; R10.9 Unspecified abdominal pain; F17.200 Nicotine dependence, unspecified, uncomplicated
CPT/HCPCS: 96376; 99284; 96361; 96374; 96375; 36415; 83690; 85025; 81025; 80053; 81001; 80307; J1630; J3490; J2405; J7030